=== PATIENT | male | born 1975 | race African-American/Black ===

== ENCOUNTER 2024-03-28 13:03 | Inpatient (IN) | payer MEDICAID, OTHER ==
[~2024-03-28] VITALS: Ht 170.2 cm; Wt 49.9 kg
[~2024-03-28 13:03] MED LIST: PHEN100C23 PO
[2024-03-28 13:55] LABS: COVID AG,FIA SOURCE NASAL SWAB
[2024-03-28 14:00] LABS: BASOPHILS % (AUTO) 0.3 % (0.0-2.0); EOSINOPHILS % (AUTO) 4.2 % (1.0-6.0); HEMATOCRIT 36.4 % (41-53); HEMOGLOBIN 11.7 g/dL (13.5-17.5); LYMPHOCYTES # (AUTO) 1.6 K/uL (1.0-4.8); LYMPHOCYTES % (AUTO) 31.2 % (22.0-44.0); MEAN CORPUSCULAR HEMOGLOBIN 26.7 pg (26.0-34.0); MEAN CORPUSCULAR HGB CONC 32.2 G/dL (31.0-37.0); MEAN CORPUSCULAR VOLUME 83 fL (80-100); MONOCYTES # (AUTO) 0.4 K/uL (0.1-1.0); MONOCYTES % (AUTO) 7.2 % (2.0-9.0); NEUTROPHILS # (AUTO) 2.9 K/uL (1.8-7.7); NEUTROPHILS % (AUTO) 57.1 % (40.0-70.0); PLATELET COUNT (AUTO) 297 K/uL (150-450); RED BLOOD CELL COUNT(AUTO) 4.39 MIL/uL (4.50-5.90); WHITE BLOOD COUNT (AUTO) 5.2 K/uL (4.5-11.0)
[2024-03-28 14:05] LABS: ANION GAP 10 mmol/L (8-16); CALCIUM, TOTAL 9.4 mg/dL (8.8-10.5); CARBON DIOXIDE 27 mmol/L (22-29); CHLORIDE 103 mmol/L (98-107); CREATININE 0.82 mg/dL (0.60-1.30); GLOMERULAR FILTR. RATE CALC > 60 mL/min (>60); GLUCOSE,RANDOM 85 mg/dL (70-110); SODIUM SERUM 140 mmol/L (136-145); UREA NITROGEN, BLOOD 18 mg/dL (7-18)
[2024-03-28 14:13] LABS: SARS-COV2 (COVID) ANTIGEN,FIA Negative (Negative)
[2024-03-28 14:14] LABS: ALCOHOL, BLOOD (SERUM) 14 mg/dL (0-10)
[2024-03-28] MEDS ORDERED: VALB80CA PO (16:28)
[2024-03-28] MEDS ORDERED: OLAN20TA82 PO (16:28)
[2024-03-28] MEDS ORDERED: ZOLPIDEM TARTRATE 10 MG TABLET PO PRN (16:30)
[2024-03-28] MEDS ORDERED: MAG HYDROX/ALUMINUM HYD/SIMETH ES 30 ML SUSPENSION UDCUP PO PRN (16:30)
[2024-03-28] MEDS ORDERED: LOPERAMIDE HCL 2 MG CAPSULE PO PRN (16:30)
[2024-03-28] MEDS ORDERED: MAGNESIUM HYDROXIDE SUSPENSION 30 ML UDCUP PO PRN (16:30)
[2024-03-28 18:25] LABS: ALCOHOL, URINE DRUG SCREEN NEGATIVE (NEGATIVE); AMPHET/METH SCREEN,URINE POSITIVE (NEGATIVE); BARBITURATE SCREEN, URINE NEGATIVE (NEGATIVE); BENZODIAZEPINES SCREEN,URINE NEGATIVE (NEGATIVE); CANNABINOID SCREEN,URINE NEGATIVE (NEGATIVE); COCAINE SCREEN,URINE NEGATIVE (NEGATIVE); METHADONE SCREEN, URINE NEGATIVE (NEGATIVE); OPIATE SCREEN,URINE NEGATIVE (NEGATIVE); PHENCYCLIDINE SCREEN,URINE NEGATIVE (NEGATIVE)
[2024-03-28] MEDS: LORazepam 2 MG/ML VIAL IM ONE (20:27)
[2024-03-28] MEDS: DiphenhydrAMINE HCL 50 MG/ML VIAL IM ONE (20:27)
[2024-03-28] MEDS: HALOPERIDOL LACTATE 5 MG/ML VIAL IM ONE (20:27)
[2024-03-29] MEDS ORDERED: IBUPROFEN 400 MG TABLET PO PRN (09:45)
[2024-03-29] MEDS ORDERED: ALBUTEROL SULFATE HFA 90 MCG/PUFF 8 GM INHALER IH PRN (09:45)
[2024-03-29] MEDS ORDERED: CloNIDine HCL 0.1 MG TABLET PO PRN (09:45)
[2024-03-29] MEDS ORDERED: GuaiFENesin/D-METHORPHAN [SUGAR-FREE] 200-20MG/10 ML SYRUP UDCUP PO PRN (09:45)
[2024-03-29] MEDS ORDERED: MAG HYDROX/ALUMINUM HYD/SIMETH ES 30 ML SUSPENSION UDCUP PO PRN (09:45)
[2024-03-29] MEDS ORDERED: ONDANSETRON 4 MG TABLET PO PRN (09:45)
[2024-03-29] MEDS ORDERED: DOCUSATE SODIUM 100 MG CAPSULE PO PRN (09:45)
[2024-03-29] MEDS ORDERED: PETROLATUM,WHITE 28 GM JELLY TP PRN (09:45)
[2024-03-29] MEDS ORDERED: MAGNESIUM HYDROXIDE SUSPENSION 30 ML UDCUP PO PRN (09:45)
[2024-03-29] MEDS ORDERED: LOPERAMIDE HCL 2 MG CAPSULE PO PRN (09:45)
[2024-03-29] MEDS ORDERED: ACETAMINOPHEN 325 MG TABLET PO PRN (09:45)
[2024-03-29] MEDS ORDERED: NICOTINE 14 MG/24 HOUR PATCH TD PRN (09:45)
[2024-03-29 11:26] VITALS: BP 107/64; PULSE 81; RESP 16; TEMP 97; O2SAT 98
[2024-03-29] MEDS: INFLUENZA VIRUS VACCINE TVS (6MO+) 2024-25/PF 45 MCG/0.5 ML SYRINGE IM. ONE (12:00)
[2024-03-29 20:10] VITALS: BP 99/58; PULSE 95; RESP 16; TEMP 97.9; O2SAT 100
[2024-03-29] MEDS: OLANZapine 10 MG TABLET PO SCH (21:23)
[2024-03-30 08:35] VITALS: BP 104/63; PULSE 69; RESP 18; TEMP 97.7; O2SAT 100
[2024-03-30 20:18] VITALS: BP 95/57; PULSE 97; RESP 18; TEMP 95.7; O2SAT 97
[2024-03-31 08:44] VITALS: BP 109/63; PULSE 70; RESP 18; TEMP 98; O2SAT 95
[2024-03-31] MEDS: MULTIVITAMINS WITH MINERALS, THERAPEUTIC TABLET PO SCH (09:27)
[2024-03-31 20:13] VITALS: BP 117/78; PULSE 103; RESP 18; TEMP 98.5; O2SAT 96
[2024-04-01 19:56] VITALS: BP 101/55; PULSE 82; RESP 18; TEMP 97.2; O2SAT 100
[2024-04-01] MEDS: ACETAMINOPHEN 325 MG TABLET PO PRN (19:59)
[2024-04-01 20:00] VITALS: BP 101/55; PULSE 82; RESP 18; TEMP 97.2; O2SAT 100
[2024-04-02 08:21] VITALS: BP 108/64; PULSE 88; RESP 18; TEMP 98.2; O2SAT 100
[2024-04-02 14:17] VITALS: RESP 18; O2SAT 100
[2024-04-02 15:17] VITALS: RESP 18; O2SAT 100
[2024-04-02 18:35] VITALS: BP 150/71; RESP 18; O2SAT 100
[2024-04-02] MEDS: HALOPERIDOL 5 MG TABLET PO PRN (18:35)
[2024-04-02] MEDS: LORazepam 2 MG TABLET PO PRN (18:35)
[2024-04-02 21:53] VITALS: BP 112/62; PULSE 76; RESP 18; TEMP 97.5
[2024-04-03 08:28] LABS: HEMOGLOBIN A1C 5.7 % (3.8-5.6)
[2024-04-03 08:41] VITALS: BP 102/57; PULSE 69; RESP 16; TEMP 97.2; O2SAT 100
[2024-04-03 08:44] LABS: CHOL/HDL RATIO 2.7 (4.2-7.3); THYROID STIMULATING HORMONE 0.99 uIU/mL (0.36-3.74)
[2024-04-03 20:00] VITALS: BP 118/65; PULSE 80; RESP 18; TEMP 97.1; O2SAT 96
[2024-04-03 20:15] VITALS: RESP 18; O2SAT 100
[2024-04-03 21:27] VITALS: RESP 18; O2SAT 100
[2024-04-04 04:07] LABS: HEPATITIS C AB (EIA) Non Reactive (Non Reactive)
[2024-04-04 08:22] VITALS: BP 103/62; PULSE 75; RESP 17; TEMP 98; O2SAT 100
[2024-04-04 21:56] VITALS: BP 100/56; PULSE 86; RESP 18; TEMP 97.6; O2SAT 96
[2024-04-05 08:21] VITALS: BP 108/61; PULSE 74; RESP 19; TEMP 97.7; O2SAT 95
== END 2024-04-05 09:45 | disposition home or self-care (01) | DRG 750 ==
LOC: EMS 13:03 → B2S 03-29 08:08
PROVIDERS: ADMIT Psychiatry & Neurology Psychiatry; ATTEND Psychiatry & Neurology Psychiatry
PROC: GZHZZZZ Group Psychotherapy (ICD-10-PCS; principal; 2024-03-29)
PROC: GZ51ZZZ Individual Psychotherapy, Behavioral (ICD-10-PCS; 2024-03-29)
PROC: GZ58ZZZ Individual Psychotherapy, Cognitive-Behavioral (ICD-10-PCS; 2024-03-29)
DX: F20.0 Paranoid schizophrenia (principal); E46 Unspecified protein-calorie malnutrition; R45.851 Suicidal ideations; Z20.822 Contact with and (suspected) exposure to COVID-19; F10.10 Alcohol abuse, uncomplicated; F15.10 Other stimulant abuse, uncomplicated; F32.9 Major depressive disorder, single episode, unspecified; F12.90 Cannabis use, unspecified, uncomplicated; D64.9 Anemia, unspecified; G40.909 Epilepsy, unspecified, not intractable, without status epilepticus; Y90.0 Blood alcohol level of less than 20 mg/100 ml; Z87.891 Personal history of nicotine dependence; Z68.1 Body mass index [BMI] 19.9 or less, adult
CPT/HCPCS: 80048; 80061; 80307; 83036; 84443; 85025; 86803; 87340; 90686; 99285; G0480; J1200; J1630; J2060

== ENCOUNTER 2024-09-21 14:50 | Emergency (ER) | payer MEDICAID, OTHER ==
[~2024-09-21] VITALS: Ht 177.8 cm; Wt 6.6 kg
[~2024-09-21 14:50] MED LIST changes: +OLAN20TA82 PO; -PHEN100C23 PO
[2024-09-21 14:59] VITALS: TEMP 97.8
[2024-09-21] MEDS ORDERED: VALB80CA PO (15:47)
[2024-09-21 15:57] LABS: ANION GAP 7 mmol/L (8-16); CALCIUM, TOTAL 8.9 mg/dL (8.8-10.5); CARBON DIOXIDE 30 mmol/L (22-29); CHLORIDE 101 mmol/L (98-107); CREATININE 1.03 mg/dL (0.60-1.30); GLOMERULAR FILTR. RATE CALC > 60 mL/min (>60); GLUCOSE,RANDOM 98 mg/dL (70-110); POTASSIUM 3.6 mmol/L (3.5-5.1); SODIUM SERUM 138 mmol/L (136-145); UREA NITROGEN, BLOOD 24 mg/dL (7-18)
[2024-09-21 15:59] LABS: BASOPHILS % (AUTO) 0.3 % (0.0-2.0); EOSINOPHILS % (AUTO) 1.5 % (1.0-6.0); HEMATOCRIT 35.5 % (41-53); HEMOGLOBIN 11.5 g/dL (13.5-17.5); LYMPHOCYTES # (AUTO) 1.6 K/uL (1.0-4.8); LYMPHOCYTES % (AUTO) 26.2 % (22.0-44.0); MEAN CORPUSCULAR HEMOGLOBIN 26.4 pg (26.0-34.0); MEAN CORPUSCULAR HGB CONC 32.3 G/dL (31.0-37.0); MEAN CORPUSCULAR VOLUME 82 fL (80-100); MONOCYTES # (AUTO) 0.5 K/uL (0.1-1.0); MONOCYTES % (AUTO) 7.4 % (2.0-9.0); NEUTROPHILS % (AUTO) 64.6 % (40.0-70.0); PLATELET COUNT (AUTO) 398 K/uL (150-450); RED BLOOD CELL COUNT(AUTO) 4.35 MIL/uL (4.50-5.90); RED CELL DISTRIBUTION WIDTH 14.1 % (11.5-14.5); WHITE BLOOD COUNT (AUTO) 6.1 K/uL (4.5-11.0)
[2024-09-21 16:01] LABS: ALCOHOL, BLOOD (SERUM) < 3 mg/dL (0-10)
[2024-09-21] MEDS: ACETAMINOPHEN 325 MG TABLET PO ONE (16:01)
[2024-09-21] MEDS: IBUPROFEN 600 MG TABLET PO ONE (17:54)
[2024-09-21 18:05] VITALS: BP 113/70; PULSE 95; RESP 18; O2SAT 99
== END 2024-09-21 18:06 | disposition home or self-care (01) ==
LOC: EMS 15:06
DX: F32.A Depression, unspecified (principal); M25.561 Pain in right knee; R45.851 Suicidal ideations; M79.672 Pain in left foot; M79.671 Pain in right foot; F12.90 Cannabis use, unspecified, uncomplicated; F17.210 Nicotine dependence, cigarettes, uncomplicated
CPT/HCPCS: 99284; 80048; 85025; 36415; 73562; G0480

== ENCOUNTER 2024-09-26 05:45 | Emergency (ER) | payer OTHER ==
[~2024-09-26] VITALS: Ht 170.2 cm; Wt 63.6 kg
[~2024-09-26 05:45] MED LIST changes: +VALB80CA PO
[2024-09-26 06:00] VITALS: BP 90/64; PULSE 79; RESP 18; TEMP 98; O2SAT 98
[2024-09-26 06:33] LABS: COVID AG,FIA SOURCE NASAL SWAB
[2024-09-26 06:41] LABS: BASOPHILS % (AUTO) 0.4 % (0.0-2.0); EOSINOPHILS % (AUTO) 1.1 % (1.0-6.0); HEMATOCRIT 36.3 % (41-53); HEMOGLOBIN 11.8 g/dL (13.5-17.5); LYMPHOCYTES # (AUTO) 1.4 K/uL (1.0-4.8); LYMPHOCYTES % (AUTO) 16.8 % (22.0-44.0); MEAN CORPUSCULAR HEMOGLOBIN 26.6 pg (26.0-34.0); MEAN CORPUSCULAR HGB CONC 32.4 G/dL (31.0-37.0); MEAN CORPUSCULAR VOLUME 82 fL (80-100); MONOCYTES # (AUTO) 0.8 K/uL (0.1-1.0); NEUTROPHILS # (AUTO) 6.1 K/uL (1.8-7.7); NEUTROPHILS % (AUTO) 71.7 % (40.0-70.0); PLATELET COUNT (AUTO) 384 K/uL (150-450); RED BLOOD CELL COUNT(AUTO) 4.42 MIL/uL (4.50-5.90); RED CELL DISTRIBUTION WIDTH 14.2 % (11.5-14.5); WHITE BLOOD COUNT (AUTO) 8.5 K/uL (4.5-11.0)
[2024-09-26 06:45] LABS: APPEARANCE,URINE CLEAR (CLEAR); BILIRUBIN,URINE NEGATIVE (NEGATIVE); COLOR,URINE LIGHT YELLOW (YELLOW); GLUCOSE, URINE (UA) NEGATIVE (NEGATIVE); KETONES,URINE NEGATIVE (NEGATIVE); LEUKOCYTE ESTERASE ,URINE NEGATIVE (NEGATIVE); NITRATE,URINE NEGATIVE (NEGATIVE); OCCULT BLOOD,URINE NEGATIVE (NEGATIVE); PH,URINE 5.5 (5.0-8.0); PH,URINE DRUG SCREEN 5.5 (5.0-8.0); PROTEIN,URINE TRACE mg/dL (NEGATIVE); SPECIFIC GRAVITIY, URINE 1.026 (1.003-1.030); UROBILINOGEN,URINE <=1.0 mg/dL (<=1.0)
[2024-09-26 06:46] LABS: ANION GAP 4 mmol/L (8-16); CALCIUM, TOTAL 9.3 mg/dL (8.8-10.5); CARBON DIOXIDE 30 mmol/L (22-29); CHLORIDE 103 mmol/L (98-107); CREATININE 0.72 mg/dL (0.60-1.30); GLOMERULAR FILTR. RATE CALC > 60 mL/min (>60); GLUCOSE,RANDOM 99 mg/dL (70-110); POTASSIUM 3.8 mmol/L (3.5-5.1); SODIUM SERUM 137 mmol/L (136-145); UREA NITROGEN, BLOOD 19 mg/dL (7-18)
[2024-09-26 06:51] LABS: ALCOHOL, URINE DRUG SCREEN NEGATIVE (NEGATIVE); AMPHET/METH SCREEN,URINE POSITIVE (NEGATIVE); BARBITURATE SCREEN, URINE NEGATIVE (NEGATIVE); BENZODIAZEPINES SCREEN,URINE NEGATIVE (NEGATIVE); CANNABINOID SCREEN,URINE NEGATIVE (NEGATIVE); COCAINE SCREEN,URINE NEGATIVE (NEGATIVE); METHADONE SCREEN, URINE NEGATIVE (NEGATIVE); OPIATE SCREEN,URINE NEGATIVE (NEGATIVE); PHENCYCLIDINE SCREEN,URINE NEGATIVE (NEGATIVE)
[2024-09-26 07:08] LABS: ALCOHOL, BLOOD (SERUM) < 3 mg/dL (0-10)
[2024-09-26 07:38] LABS: SARS-COV2 (COVID) ANTIGEN,FIA Negative (Negative)
== END 2024-09-26 10:10 | disposition home or self-care (01) ==
LOC: EMS 05:45
DX: R45.851 Suicidal ideations (principal); F32.A Depression, unspecified; F12.90 Cannabis use, unspecified, uncomplicated; F17.210 Nicotine dependence, cigarettes, uncomplicated; Z59.00 Homelessness unspecified; Z20.822 Contact with and (suspected) exposure to COVID-19
CPT/HCPCS: 99284; 87426; 80048; 85025; 36415; 80307; 81003; G0480

== ENCOUNTER 2024-11-20 01:05 | Emergency (ER) | payer OTHER ==
[~2024-11-20] VITALS: Ht 152.4 cm; Wt 80.0 kg
[2024-11-20 01:53] VITALS: TEMP 98.2
[2024-11-20 02:50] VITALS: BP 121/88; PULSE 99; RESP 20; O2SAT 96
[2024-11-20] MEDS: TraMADol HCL 50 MG TABLET PO ONE (03:04)
[2024-11-20 03:22] LABS: COVID AG,FIA SOURCE NASAL SWAB
[2024-11-20 03:25] LABS: ANION GAP 6 mmol/L (8-16); CALCIUM, TOTAL 9.4 mg/dL (8.8-10.5); CARBON DIOXIDE 30 mmol/L (22-29); CHLORIDE 96 mmol/L (98-107); CREATININE 0.95 mg/dL (0.60-1.30); GLOMERULAR FILTR. RATE CALC > 60 mL/min (>60); GLUCOSE,RANDOM 134 mg/dL (70-110); POTASSIUM 4.2 mmol/L (3.5-5.1); SODIUM SERUM 132 mmol/L (136-145); UREA NITROGEN, BLOOD 31 mg/dL (7-18)
[2024-11-20 03:27] LABS: BASOPHILS % (AUTO) 0.5 % (0.0-2.0); EOSINOPHILS % (AUTO) 0.9 % (1.0-6.0); HEMATOCRIT 38.8 % (41-53); HEMOGLOBIN 12.8 g/dL (13.5-17.5); LYMPHOCYTES # (AUTO) 1.9 K/uL (1.0-4.8); LYMPHOCYTES % (AUTO) 21.5 % (22.0-44.0); MEAN CORPUSCULAR HEMOGLOBIN 26.3 pg (26.0-34.0); MEAN CORPUSCULAR HGB CONC 33.1 G/dL (31.0-37.0); MEAN CORPUSCULAR VOLUME 79 fL (80-100); MONOCYTES # (AUTO) 0.8 K/uL (0.1-1.0); MONOCYTES % (AUTO) 9.1 % (2.0-9.0); NEUTROPHILS # (AUTO) 6.1 K/uL (1.8-7.7); PLATELET COUNT (AUTO) 321 K/uL (150-450); RED BLOOD CELL COUNT(AUTO) 4.89 MIL/uL (4.50-5.90); RED CELL DISTRIBUTION WIDTH 13.3 % (11.5-14.5)
[2024-11-20 03:37] LABS: APPEARANCE,URINE CLEAR (CLEAR); BILIRUBIN,URINE NEGATIVE (NEGATIVE); COLOR,URINE LIGHT YELLOW (YELLOW); GLUCOSE, URINE (UA) NEGATIVE (NEGATIVE); KETONES,URINE NEGATIVE (NEGATIVE); LEUKOCYTE ESTERASE ,URINE NEGATIVE (NEGATIVE); NITRATE,URINE NEGATIVE (NEGATIVE); OCCULT BLOOD,URINE NEGATIVE (NEGATIVE); PH,URINE 6.5 (5.0-8.0); PROTEIN,URINE NEGATIVE (NEGATIVE); SPECIFIC GRAVITIY, URINE 1.024 (1.003-1.030); UROBILINOGEN,URINE <=1.0 mg/dL (<=1.0)
[2024-11-20 03:40] LABS: SARS-COV2 (COVID) ANTIGEN,FIA Negative (Negative)
== END 2024-11-20 06:04 | disposition home or self-care (01) ==
LOC: EMS 01:06
DX: G89.29 Other chronic pain (principal); M25.512 Pain in left shoulder; F12.90 Cannabis use, unspecified, uncomplicated; F17.210 Nicotine dependence, cigarettes, uncomplicated; F15.10 Other stimulant abuse, uncomplicated; Z20.822 Contact with and (suspected) exposure to COVID-19
CPT/HCPCS: 99284; 87426; 80048; 81003; 85025; 36415; 73030; G0480

== ENCOUNTER 2024-12-31 15:09 | Emergency (ER) | payer OTHER ==
[~2024-12-31] VITALS: Ht 170.2 cm; Wt 68.2 kg
[2024-12-31 15:32] VITALS: BP 178/80; PULSE 105; RESP 18; TEMP 97.8; O2SAT 99
[2024-12-31] MEDS ORDERED: BENZ-247 PO (15:32)
== END 2024-12-31 18:54 | disposition short-term general hospital (02) ==
LOC: EMS 15:09
DX: R45.851 Suicidal ideations (principal); F15.10 Other stimulant abuse, uncomplicated; F20.9 Schizophrenia, unspecified; F12.90 Cannabis use, unspecified, uncomplicated; F17.210 Nicotine dependence, cigarettes, uncomplicated; F32.A Depression, unspecified; Z59.00 Homelessness unspecified; Z79.899 Other long term (current) drug therapy
CPT/HCPCS: 99282; 99285; Z7502